=== PATIENT | male | born 1985 | race Caucasian/White ===

== ENCOUNTER 2019-07-13 09:26 | Emergency (ER) | payer OTHER ==
--- NOTE | 2019-07-13 09:40 | UC ---
Skin Complaint HPI - HPI Summary HPI Summary: 34 yo male presents with rash. He tells me that 9 days ago he was exposed to poison maryam on his hands and arms. About 7 days ago he noticed his rash was spreading. He began taking benadryl. He called his insurance company's telemedicine and was prescribed medrol dose leonid, which he has taken for 3 days but continues to have new hives to his thighs and last night noticed some eyelid swelling. He denies lip/throat/tongue swelling, SOB, cough, difficulty breathing, chest pain, abdominal pain, or vomiting. - History of Current Complaint Chief Complaint: UCRash Time Seen by Provider: 07/13/19 09:39 Stated Complaint: RASH Hx Obtained From: Patient Onset/Duration: Gradual Onset Onset Severity: Mild Current Severity: Moderate Pain Intensity: 0 Pain Scale Used: 0-10 Numeric - Allergy/Home Medications Allergies/Adverse Reactions: Allergies Allergy/AdvReac Type Severity Reaction Status Date / Time No Known Allergies Allergy Verified 07/13/19 09:40 PMH/Surg Hx/FS Hx/Imm Hx - Additional Past Medical History Additional PMH: None - Surgical History Surgical History: None - Family History Known Family History: Positive: Non-Contributory - Social History Occupation: Employed Full-time Lives: With Family Alcohol Use: Daily Substance Use Type: None Smoking Status (MU): Never Smoked Tobacco Review of Systems All Other Systems Reviewed And Are Negative: Yes Constitutional: Positive: Negative Skin: Positive: Rash Eyes: Positive: Negative ENT: Positive: Negative Respiratory: Positive: Negative Cardiovascular: Positive: Negative Gastrointestinal: Positive: Negative Neurovascular: Positive: Negative Neurological: Positive: Negative Psychological: Positive: Negative Physical Exam - Summary Physical Exam Summary: GENERAL: NAD. WDWN. No pain distress. SKIN: Right forearm with linear erythematous blistering. Hives on B/L thighs, anterior chest wall, and scantly on lower legs. Mild perioribital edema, mostly of the upper eyelids/brow non-obstructive or restrictive. No open wounds, drainage, streaking. HEENT: Head: AT/NC Eyes: EOM intact. PERRLA. See skin. Ears: Hearing grossly normal. Throat: Posterior oropharynx without exudates, erythema, or tonsillar enlargement. Uvula midline. Airway patent and without edema. CHEST: CTAB. No r/r/w. No accessory muscle use. Breathing comfortably and in no distress. CV: RRR. Without m/r/g. Pulses intact. Cap refill <2seconds NEURO: Alert. PSYCH: Age appropriate behavior. Triage Information Reviewed: Yes Vital Signs: Initial Vital Signs Temp 98 F 07/13/19 09:35 Pulse 57 07/13/19 09:35 Resp 16 07/13/19 09:35 BP 126/78 07/13/19 09:35 Pulse Ox 98 07/13/19 09:35 Vital Signs Reviewed: Yes Course/Dx - Course Course Of Treatment: Suspect histamine reaction due to poison maryam. Pt states he thinks he has taken steroids in the past without issue. In the clinic he was given solumedrol 125mg IM and pepcid 40mg po for his symptoms. Will dc with 2 weeks of prednisone and pepcid and have him continue taking benadryl. Advised to go to the ER if his eyelid swelling worsens or if his rash continues to spread or if he has any swelling of the lips/throat/tongue or difficulty breathing. - Diagnoses Provider Diagnosis: Poison maryam, Allergic reaction Discharge - Sign-Out/Discharge Documenting (check all that apply): Patient Departure All imaging exams completed and their final reports reviewed: No Studies - Discharge Plan Condition: Stable Disposition: HOME Prescriptions: RX: Famotidine TAB* [Pepcid 20 MG TAB*] 20 mg PO BID #28 tab RX: predniSONE TAB* [Deltasone 20 MG TAB*] 60 mg PO DAILY 14 Days #29 tab Patient Education Materials: Poison Maryam (ED) Referrals: No Primary Care Phys,NOPCP [Primary Care Provider] - Additional Instructions: If you develop a fever, shortness of breath, chest pain, new or worsening symptoms - please call your PCP or go to the ED immediately. Use the steroid cream on the areas of rash, but not in the groin or on your face. If your eyelid swelling worsens or if you develop lip/mouth/throat swelling or difficulty breathing - please call 911 or go to the ER immediately. - Take prednisone exactly as prescribed until gone - starting tomorrow - Okay to take Benadryl 25mg every 6 hours as needed for itching and hives. This medication may cause drowsiness - do NOT drive, operate machinery or drink alcohol while taking Benadryl -Avoid getting over-heated (hot showers, hot tubs, exercise) for at least 48 hours - Try to avoid aspirin, NSAIDs (Motrin, Aleve, Naprosyn) for 2-3 days - Okay to apply cool compresses to the area of injury -Contact your doctor or return here with questions or concerns - Billing Disposition and Condition Condition: STABLE Disposition: Home
[2019-07-13] MEDS ORDERED: Famotidine TAB* 20 MG PO ONE (10:00)
[2019-07-13] MEDS ORDERED: methylPREDNISolone 125 MG* 2 ML VIAL IM ONE (10:00)
== END 2019-07-13 10:15 | disposition home or self-care (01) ==
LOC: UCEAST 09:26
DX: L23.7 Allergic contact dermatitis due to plants, except food (principal)
CPT/HCPCS: 96372; 99202; A9270-GY; G0463; J2930